=== PATIENT | male | born 1965 | race Caucasian/White ===

== ENCOUNTER 2019-07-19 10:36 | Inpatient (IN) | payer BC ==
[~2019-07-19] VITALS: Ht 193 cm; Wt 106.0 kg
[~2019-07-19 10:36] MED LIST: IBUP-1984 PO
[2019-07-19 11:36] LABS: BASOPHILS # (AUTO) 0.1 X10'3 (0-0.2); BASOPHILS % (AUTO) 0.6 % (0-1); EOSINOPHILS # (AUTO) 0.2 X10'3 (0-0.9); EOSINOPHILS % (AUTO) 2.1 % (0-6); HEMATOCRIT 31.1 % (42.0-52.0); HEMOGLOBIN 10.7 g/dl (14.0-17.9); LYMPHOCYTES # (AUTO) 1.5 X10'3 (1.1-4.8); LYMPHOCYTES % (AUTO) 16.4 % (21-51); MEAN CORPUSCULAR HEMOGLOBIN 28.3 PG (27.0-31.0); MEAN CORPUSCULAR HGB CONC 34.4 g/dL (33.0-36.5); MEAN CORPUSCULAR VOLUME 82.3 FL (78-98); MEAN PLATELET VOLUME 7.8 FL (7.4-10.4); MONOCYTES # (AUTO) 0.4 X10'3 (0-0.9); MONOCYTES % (AUTO) 4.1 % (2-12); NEUTROPHILS # (AUTO) 7.3 X10'3 (1.8-7.7); NEUTROPHILS % (AUTO) 76.8 % (42-75); PLATELET COUNT 285 X10'3 (140-440); RED BLOOD COUNT 3.77 X10'6 (4.70-6.10); RED CELL DISTRIBUTION WIDTH 13.8 % (11.5-14.5); WHITE BLOOD COUNT 9.5 X10'3 (4.5-11.0)
[2019-07-19 11:50] LABS: PARTIAL THROMBOPLASTIN TIME 24 SECONDS (22-32)
[2019-07-19 11:52] LABS: ALANINE AMINOTRANSFERASE 24 U/L (12-78); ALBUMIN 3.3 G/DL (3.4-5.0); ALKALINE PHOSPHATASE 57 IU/L (46-116); ANION GAP 9 (8-16); ASPARTATE AMINO TRANSFERASE 16 U/L (10-37); BILIRUBIN,TOTAL 0.4 MG/DL (0.1-1.0); BLOOD UREA NITROGEN 30 MG/DL (7-18); BUN/CREATININE RATIO 29.7 (5.4-32.0); CALCIUM 8.9 MG/DL (8.5-10.1); CHLORIDE 106 MMOL/L (99-107); CREATININE 1.01 MG/DL (0.60-1.10); GLUCOSE 137 MG/DL (70-104); SODIUM 138 MMOL/L (135-145); TOTAL CARBON DIOXIDE 23.4 MMOL/L (24-32); TOTAL PROTEIN 6.7 G/DL (6.4-8.2); eGFR 77 ML/MIN
[2019-07-19] MEDS ORDERED: pantoprazole 40 MG vial IV ONE (12:40)
[2019-07-19] MEDS ORDERED: HYDR-3972 PO (13:16)
--- NOTE | 2019-07-19 13:43 | NUR ---
relieving RN for break, pt is resting quietly on gurney, attempted report, nurse will call back
[2019-07-19] MEDS ORDERED: ondansetron/PF 4mg/2ml inj IV PRN (14:10)
[2019-07-19] MEDS ORDERED: HYDROcodone/acetaminophen 5mg/325mg tablet PO PRN (14:10)
[2019-07-19] MEDS ORDERED: morphine 2 MG/ML inj. syringe IV PRN (14:10)
[2019-07-19] MEDS ORDERED: acetaminophen 325mg tablet PO PRN ×2 (14:10)
[2019-07-19] MEDS ORDERED: LORazepam 2 mg/ml vial IV PRN (14:10)
[2019-07-19] MEDS ORDERED: magnesium Cl slow-release 64mg tablet PO PRN (14:10)
[2019-07-19] MEDS ORDERED: magnesium 2GM in 50ml NS 50 ML IV PRN (14:10)
[2019-07-19] MEDS ORDERED: potassium Cl 20 mEq SR tablet PO PRN ×2 (14:10)
[2019-07-19] MEDS ORDERED: LORazepam 1 MG tablet PO PRN (14:10)
[2019-07-19] MEDS ORDERED: potassium CL 10mEq/100ml bag 100 ML IV PRN ×2 (14:10)
[2019-07-19] MEDS ORDERED: magnesium 4gm in 100ml NS 100 ML IV PRN (14:10)
[2019-07-19 14:15] VITALS: BP 121/75
[2019-07-19 14:18] LABS: OCCULT BLOOD STOOL POSITIVE (Neg)
[2019-07-19] MEDS ORDERED: IBUP-1985 PO (17:19)
[2019-07-19] MEDS: normal saline 1000ml 1,000 ML IV SCH (17:25)
[2019-07-19 18:00] VITALS: BP 111/67
--- NOTE | 2019-07-19 18:54 | NUR ---
Patient in room [facility]. I have received report from Kamilah MUIR and had the opportunity to ask questions and assume patient care.
[2019-07-19] MEDS: pantoprazole 40 MG vial IV SCH (19:48)
[2019-07-19] MEDS ORDERED: K and/or MAG REPLACEMENT MC SCH (20:00)
[2019-07-19] MEDS ORDERED: temazepam 15mg capsule PO PRN (21:00)
[2019-07-20] VITALS (7 sets, daily range): BP systolic 101–138; BP diastolic 66–81
[2019-07-20] MEDS: normal saline 1000ml 1,000 ML IV SCH ×2 (00:08→02:02)
[2019-07-20 05:26] LABS: BASOPHILS # (AUTO) 0.1 X10'3 (0-0.2); BASOPHILS % (AUTO) 0.8 % (0-1); EOSINOPHILS # (AUTO) 0.3 X10'3 (0-0.9); HEMATOCRIT 27.6 % (42.0-52.0); HEMOGLOBIN 9.5 g/dl (14.0-17.9); LYMPHOCYTES % (AUTO) 26.5 % (21-51); MEAN CORPUSCULAR HEMOGLOBIN 28.6 PG (27.0-31.0); MEAN CORPUSCULAR HGB CONC 34.4 g/dL (33.0-36.5); MEAN CORPUSCULAR VOLUME 83.2 FL (78-98); MEAN PLATELET VOLUME 7.7 FL (7.4-10.4); MONOCYTES # (AUTO) 0.4 X10'3 (0-0.9); MONOCYTES % (AUTO) 5.4 % (2-12); NEUTROPHILS # (AUTO) 4.8 X10'3 (1.8-7.7); NEUTROPHILS % (AUTO) 63.3 % (42-75); PLATELET COUNT 264 X10'3 (140-440); RED BLOOD COUNT 3.32 X10'6 (4.70-6.10); RED CELL DISTRIBUTION WIDTH 14.2 % (11.5-14.5); WHITE BLOOD COUNT 7.6 X10'3 (4.5-11.0)
[2019-07-20 05:57] LABS: ALANINE AMINOTRANSFERASE 26 U/L (12-78); ALBUMIN 2.9 G/DL (3.4-5.0); ALBUMIN/GLOBULIN RATIO 0.9 (1.1-1.5); ALKALINE PHOSPHATASE 47 IU/L (46-116); ANION GAP 6 (8-16); ASPARTATE AMINO TRANSFERASE 18 U/L (10-37); BILIRUBIN,TOTAL 0.5 MG/DL (0.1-1.0); BLOOD UREA NITROGEN 20 MG/DL (7-18); CALCIUM 8.4 MG/DL (8.5-10.1); CHLORIDE 110 MMOL/L (99-107); CREATININE 1.05 MG/DL (0.60-1.10); GLUCOSE 95 MG/DL (70-104); MAGNESIUM 2.1 MG/DL (1.5-2.4); POTASSIUM 4.3 MMOL/L (3.5-5.1); SODIUM 142 MMOL/L (135-145); TOTAL CARBON DIOXIDE 25.6 MMOL/L (24-32); TOTAL PROTEIN 6.1 G/DL (6.4-8.2); eGFR 73 ML/MIN
--- NOTE | 2019-07-20 06:26 | NUR ---
Problems reprioritized. Patient report given, questions answered & plan of care reviewed with Nafisa MUIR. Patient resting with no apparent distress.
--- NOTE | 2019-07-20 06:34 | NUR ---
Patient in room [facility]. I have received report from WOOD Perla and had the opportunity to ask questions and assume patient care.
[2019-07-20] MEDS: pantoprazole 40 MG vial IV SCH (08:02)
[2019-07-20] MEDS ORDERED: fentaNYL/PF 50MCG/1 ML 2ML syringe ONE (09:16)
[2019-07-20] MEDS ORDERED: MIDAZolam 5mg/5ml vial ONE (09:16)
[2019-07-20] MEDS ORDERED: LIDOcaine Viscous 15ml cup ONE (09:17)
--- NOTE | 2019-07-20 12:23 | NUR ---
Pt back from GI Lab. Pt A&O x4. NO s/s of bleeding noted. Tolerated liquid diet well. Dr Rodrigues informed. Pt will be D/C home this afternoon.
[2019-07-20] MEDS ORDERED: PANT-47 PO (12:32)
--- NOTE | 2019-07-20 14:29 | NUR ---
Patient D/C'd home in stable conditions. Discharge and medication instruction given to pt. Pt was escorted outside of main lobby. Left the hospital via private vehicle accompanied by .
== END 2019-07-20 13:49 | disposition home or self-care (01) | DRG 379 ==
LOC: ER 10:36 → CANBEDREQ 12:58 → ED HOLD 13:04 → SUR 3N 14:08
PROVIDERS: ADMIT Internal Medicine; ATTEND Internal Medicine
PROC: 0D748ZZ Dilation of Esophagogastric Junction, Via Natural or Artificial Opening Endoscopic (ICD-10-PCS; principal; 2019-07-20)
PROC: 0DB68ZX Excision of Stomach, Via Natural or Artificial Opening Endoscopic, Diagnostic (ICD-10-PCS; 2019-07-20)
DX: K27.4 Chronic or unspecified peptic ulcer, site unspecified, with hemorrhage (principal); D50.9 Iron deficiency anemia, unspecified; F17.290 Nicotine dependence, other tobacco product, uncomplicated; K22.2 Esophageal obstruction; M19.90 Unspecified osteoarthritis, unspecified site; Z87.442 Personal history of urinary calculi; Z88.0 Allergy status to penicillin; Z91.030 Bee allergy status
CPT/HCPCS: 36415; 43239; 71045; 80053; 82272; 83735; 84484; 85025; 85610; 85730; 86885; 86900; 86901; 87081; 93005; 96374; 99152; 99285; A4620; C9113; G0378; J2250; J2270; J3010; J7030; J7040